=== PATIENT | male | born 1995 ===

== ENCOUNTER 2019-03-09 18:56 | Emergency (ER) | payer OTHER ==
--- NOTE | 2019-03-09 20:04 | ED PDOC ---
HPI: Chest Pain Time Seen by Provider: 03/09/19 19:20 Chief Complaint (Nursing): Palpitations Chief Complaint (Provider): Palpitations History Per: Patient History/Exam Limitations: no limitations Onset/Duration Of Symptoms: Mins Current Symptoms Are (Timing): Still Present Additional Complaint(s): 23 y/o male with a PMHx of Anxiety presents to the ED for evaluation of palpitations that lasted for about 45 minutes, just prior to arrival. 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 In the course of the shift, patient notes of having two margaritas. Patient states he was walking home when he began to feel his heart race and feeling irregular. Patient reports of similar symptoms in the past that were associated with anxiety attacks. Patient denies chest pain. Patient additionally notes of having felt dizzy. Patient states symptoms resolved upon arrival to the ED. PMD: no provider Past Medical History Reviewed: Historical Data, Nursing Documentation, Vital Signs Vital Signs: Last Vital Signs Temp 98.2 F 03/09/19 19:00 Pulse 80 03/09/19 19:16 Resp 22 03/09/19 19:16 BP 132/73 03/09/19 19:16 Pulse Ox 96 03/09/19 19:16 - Medical History PMH: Anxiety - Surgical History Surgical History: No Surg Hx - Family History Family History: States: Unknown Family Hx - Social History Current smoker - smoking cessation education provided: No Alcohol: Occasional Drugs: Denies - Allergies Allergies/Adverse Reactions: Allergies Allergy/AdvReac Type Severity Reaction Status Date / Time No Known Allergies Allergy Unverified 08/08/17 00:53 Review of Systems ROS Statement: Except As Marked, All Systems Reviewed And Found Negative Cardiovascular: Positive for: Palpitations Physical Exam - Reviewed Nursing Documentation Reviewed: Yes Vital Signs Reviewed: Yes - Physical Exam Appears: Positive for: No Acute Distress Head Exam: Positive for: ATRAUMATIC, NORMOCEPHALIC Skin: Positive for: Normal Color, Warm, Dry Eye Exam: Positive for: Normal appearance, EOMI, PERRL ENT: Positive for: Normal ENT Inspection Neck: Positive for: Normal, Painless ROM, Supple Cardiovascular/Chest: Positive for: Regular Rate, Rhythm. Negative for: Murmur, Tachycardia Respiratory: Positive for: Normal Breath Sounds. Negative for: Respiratory Distress Gastrointestinal/Abdominal: Positive for: Normal Exam, Soft. Negative for: Tenderness Back: Positive for: Normal Inspection. Negative for: L CVA Tenderness, R CVA Tenderness, Vertebral Tenderness Extremity: Positive for: Normal ROM. Negative for: Deformity Neurological/Psych: Positive for: Awake, Alert, Oriented (x3). Negative for: Motor/Sensory Deficits - Laboratory Results Result Diagrams: 03/09/19 20:00 03/09/19 20:00 - ECG O2 Sat by Pulse Oximetry: 96 (RA) Pulse Ox Interpretation: Normal Medical Decision Making Medical Decision Making: Time: 1952 Impression: 23 y/o male presenting with palpitations Plan: -- EKG -- Alcohol Serum -- CMP -- Magnesium -- Troponin I -- TSH -- Urine Drug Screen -- CBC with differentials Time: 2142 -- On re-evaluation, patient remains asymptomatic. Patient is stable for discharge home with a diagnosis of palpitations and instructions to follow up with his PMD. Scribe Attestation: Documented by Enid St, acting as a scribe Niles Livingston MD. Provider Scribe Attestation: All medical record entries made by the Scribe were at my direction and personally dictated by me. I have reviewed the chart and agree that the record accurately reflects my personal performance of the history, physical exam, medical decision making, and the department course for this patient. I have also personally directed, reviewed, and agree with the discharge instructions and disposition. Disposition - Clinical Impression Clinical Impression: Palpitations - Patient ED Disposition Is Patient to be Admitted: No Counseled Patient/Family Regarding: Studies Performed, Diagnosis, Need For Followup - Disposition Disposition: Routine/Home Disposition Time: 21:43 Condition: STABLE Instructions: Palpitations Forms: [employer] ([employer]eless)
[2019-03-09 20:14] LABS: BASO % 0.8 % (0.0-2.0); EOS # 0.1 K/uL (0.0-0.7); EOS % 2.3 % (0.0-4.0); HEMOGLOBIN 14.3 g/dL (12.0-18.0); LYMPH # 1.1 K/uL (1.0-4.3); LYMPH % 23.8 % (20.0-40.0); MEAN CELL VOLUME 95.7 fl (80.0-94.0); MEAN CORPUSCULAR HEMOGLOBIN 32.2 pg (27.0-31.0); MEAN CORPUSCULAR HGB CONC 33.6 g/dL (33.0-37.0); MEAN PLATELET VOLUME 8.2 fl (7.2-11.7); MONO # 0.6 K/uL (0.0-0.8); MONO % 13.7 % (0.0-10.0); NEUT # 2.7 K/uL (1.8-7.0); NEUT % 59.4 % (50.0-75.0); NRBC % 0.1 % (0.0-0.0); RBC 4.45 Mil/uL (4.40-5.90); RED CELL DISTRIBUTION WIDTH 12.7 % (11.5-14.5); WHITE BLOOD COUNT 4.5 K/uL (4.8-10.8)
[2019-03-09 20:21] LABS: ALB/GLOB RATIO 1.7 (1.0-2.1); ALBUMIN 4.8 g/dL (3.5-5.0); ALT/SGPT 67 U/L (21-72); AST/SGOT 40 U/L (17-59); BLOOD UREA NITROGEN 12 mg/dl (9-20); CALCIUM 9.1 mg/dL (8.4-10.2); GFR NON-AFRICAN AMERICAN > 60
[2019-03-09 20:37] LABS: BARBITURATES, UR NEGATIVE (NEGATIVE); BENZODIAZEPINES, UR NEGATIVE (NEGATIVE); OPIATES, UR NEGATIVE (NEGATIVE); PHENCYCLIDINE, UR NEGATIVE (NEGATIVE)
[2019-03-09 23:57] VITALS: BP 129/83; PULSE 81; RESP 18; TEMP 99; O2SAT 98
--- NOTE | 2019-03-10 10:15 | CARD ---
APPROVED REPORT Date of service: 03/09/2019 EKG Measurement Heart [id number] <Conclusion> Normal sinus rhythm Normal ECG
== END 2019-03-09 21:55 | disposition home or self-care (01) ==
LOC: H.ER 18:56
DX: R00.2 Palpitations (principal); F41.9 Anxiety disorder, unspecified